=== PATIENT | male | born 1940 | race Hispanic/Latino ===

== ENCOUNTER → 2019-01-11 | Outpatient (CLI) | payer MEDICARE ==
--- NOTE | 2019-01-11 13:16 | Diagnostic Imaging Report ---
Thyroid ultrasound History: Hyperparathyroidism, hypercalcemia. Comparison: None Findings: The thyroid echotexture is normal. Vascularity is normal. The right lobe measures 4.7 x 1.6 x 1.6 cm. The left lobe measures 3.9 x 1.3 x 1.4 cm. The isthmus measures 0.2 cm. No evidence of nodule. Lymph Nodes: No cervical lymph nodes are identified. Parathyroids: Not visualized. IMPRESSION: Unremarkable thyroid ultrasound. The parathyroid glands are not visualized. Signed by: Dr. Yeison Rodriguez MD on 01/11/2019 1:13 PM
--- NOTE | 2019-01-11 20:24 | Diagnostic Imaging Report ---
Parathyroid Scan with SPECT Reason for exam: Hyperparathyroidism Radiopharmaceutical: Tc-99m sestamibi 26.9 mCi After intravenous administration of the radiopharmaceutical, immediate and 2-hour planar images of the neck and upper chest were obtained. Tomographic images of the neck and upper chest were also obtained following the initial planar images. On the initial planar and tomographic images, a small focus of increased tracer accumulation lies between the left submandibular gland and the upper pole of the left thyroid lobe. It is clearly distinct from the thyroid. On the delayed planar images, washout of tracer from the thyroid is complete an this focus superior to the left lobe of the thyroid persists. No other focal abnormalities are identified. Impression: A single enlarged hypermetabolic parathyroid gland is identified between the left submandibular gland and the upper pole of the left thyroid lobe. Signed by: Dr. Dee Dee Fernandez M.D. on 01/11/2019 8:20 PM
== END ==
LOC: US 11:50
PROVIDERS: ATTEND Internal Medicine
DX: E83.52 Hypercalcemia (principal); E21.3 Hyperparathyroidism, unspecified
CPT/HCPCS: 76536; 78071; A9500